=== PATIENT | male | born 1990 | race African-American/Black ===

== ENCOUNTER 2020-03-25 08:30 | Emergency (ER) | payer OTHER, SELFPAY ==
[2020-03-25 08:35] VITALS: BP 168/98; PULSE 86; RESP 18; TEMP 36.2; O2SAT 100
--- NOTE | 2020-03-25 09:09 | ED.EYEPROB ---
HPI - Eye Problem General Chief complaint: Eye Problems Stated complaint: Eye Problem Time Seen by Provider: 03/25/20 08:50 Source: patient Mode of arrival: ambulatory Limitations: no limitations History of Present Illness HPI Narrative: Patient is a 29-year-old male who presents to the emergency department with complaint of foreign body in his left eye. Patient states he had part of contact lens stuck underneath his left eyelid. Nurse irrigated patient's eye on arrival to the ED and he states foreign body is now gone and he feels asymptomatic. Patient denies any other eye symptoms whatsoever. Patient reports that 1 week ago today he was found to have a temperature of 101 on screening going into work and was sent home. Patient states when he got home his temperature was normal and he has not had any fever whatsoever over the past week. Patient denies any symptoms such as cough, shortness of breath, headache, myalgias, nausea, vomiting, or diarrhea. Patient states he is never had any illness symptoms and he questions the accuracy of the temperature check at work as he did not feel like he had a fever and he did not have an elevated temperature when he got home. Patient states he needs a note to go back to work. chief complaint: foreign body Onset (ago): hour(s) Location: left eye Eye Symptoms: foreign body sensation Place: home Mechanism: other (Contact lens) Associated symptoms: none Related Data Home Medications Medication Instructions Recorded Confirmed No Home Medications 03/25/20 03/25/20 Allergies Allergy/AdvReac Type Severity Reaction Status Date / Time No Known Allergies Allergy Verified 03/25/20 09:04 Review of Systems Review of Systems: All systems reviewed & are unremarkable except as noted in HPI and below Constitutional: Constitutional: Denies chills and Denies fever(s) Eyes: Eyes: Reports as per HPI ENT: Reports as per HPI Respiratory: Respiratory: Denies cough and Denies dyspnea Gastrointestinal: Gastrointestinal: Denies diarrhea, Denies nausea and Denies vomiting PMF Past Medical History Medical History (Updated 03/25/20 @ 09:16 by Marisol Royal MD) No significant past medical history Social History Social History (Updated 03/25/20 @ 09:12 by Marisol Royal MD) Smoking status: Never smoker Exam Const: General: cooperative, no acute distress and alert Nutritional Appearance: obese morbidly obese Orientation/consciousness: patient oriented x3 Limitations: no limitations Eyes: Conjunctivae: conjunctivae normal Pupils: Equal, round and reactive pupils present EOM: EOMs intact bilaterally Direct Ophthalmoscopy: no photophobia Resp: Effort & Inspection: normal respiratory effort Auscultation: clear to auscultation bilaterally Cardio: Rate: regular rate Rhythm: regular rhythm Skin: General skin exam: normal color Neuro: General: patient oriented x3 Cognition (Neuro): normal cognition Speech: normal speech Extrem: General: normal to inspection, full ROM and no clubbing, cyanosis or edema Psych: Mental Status: mental status grossly normal Affect: normal affect Attitude: cooperative Course Course Emergency Course: Patient foreign body alleviated by eye irrigation by nurse on arrival. Currently asymptomatic. Will discharge home. Patient without any illness symptoms. Vital Signs Vital signs: Vital Signs Temperature 97.1 F L 03/25/20 08:35 Pulse Rate 86 03/25/20 08:35 Respiratory Rate 18 03/25/20 08:35 Blood Pressure 168/98 H 03/25/20 08:35 Pulse Oximetry 100 03/25/20 08:35 Temperature 97.1 F L 03/25/20 08:35 Pulse Rate 86 03/25/20 08:35 Respiratory Rate 18 03/25/20 08:35 Blood Pressure 168/98 H 03/25/20 08:35 Pulse Oximetry 100 03/25/20 08:35 Critical Care Time Critical Care Time Critical Care Time: No Discharge Plan Discharge Clinical Impression: Foreign body of left eye Qualifiers: Encounter typ
[2020-03-25 09:30] VITALS: BP 141/89; PULSE 79; RESP 18; TEMP 36.4; O2SAT 99
== END 2020-03-25 09:35 | disposition home or self-care (01) ==
PROVIDERS: Emergency Provider Emergency Medicine
DX: T15.92XA Foreign body on external eye, part unspecified, left eye, initial encounter (principal); Y29.XXXA Contact with blunt object, undetermined intent, initial encounter
CPT/HCPCS: 99281; A9270

== ENCOUNTER 2023-10-06 18:12 | Emergency (ER) | payer BC, SELFPAY ==
[2023-10-06 18:14] VITALS: BP 155/95; PULSE 89; RESP 17; TEMP 36.7; O2SAT 97
[2023-10-06 22:02] LABS: Basophils Percent Auto 0.6 % (0.2-1.2); Eosinophils Absolute Auto 0.2 K/mm3 (0-0.3); Eosinophils Percent Auto 2.5 % (0-4.4); Hemoglobin 15.7 g/dL (14.0-18.0); Immature Granulocyte Absolute 0.01 K/mm3 (0.00-0.031); Immature Granulocyte Percent A 0.1 % (0-0.5); Lymphocytes Absolute Auto 3.06 K/mm3 (0.9-3.2); Lymphocytes Percent Auto 42.3 % (18.3-44.2); Mean Corpuscular HGB Conc 32.7 g/dl (32-36); Mean Corpuscular Hemoglobin 27.9 pg (26-34); Mean Corpuscular Volume 85.4 fl (80-100); Mean Platelet Volume 9.4 fl (7.4-10.4); Monocytes Absolute Auto 0.3 K/mm3 (0.1-0.6); Monocytes Percent Auto 4.6 % (2.6-8.5); Neutrophils Absolute Auto 3.6 K/mm3 (1.3-6.7); Neutrophils Percent Auto 49.9 % (45.5-73.1); Platelet Count Result 299 k/mm3 (150-375); Red Blood Count 5.62 M/mm3 (4.6-6.20); Red Cell Distribution Width 12.9 % (11.5-14.5); White Blood Count 7.2 K/mm3 (4.5-10.0)
--- NOTE | 2023-10-06 22:16 | ED.MALEGU ---
HPI - Male Genitourinary General Chief complaint: Urogenital-Male Stated complaint: Kidney stone Time Seen by Provider: 10/06/23 21:47 History of Present Illness HPI Narrative: 33-year-old male reports for evaluation to the emergency department for difficulty urinating since 5pm this evening. Patient reports a prior history of kidney stones in 2018 reviewed difficulty urinating until he was able to pass the stone. He states for the past couple of weeks, he has been having intermittent right flank pain. States he had some dysuria past few days with associated nausea which has since resolved. Patient states around 5:00 p.m. today, he fell he was unable to fully empty his bladder and began troubling from his urethra. This prompted him to come to the ED. once the patient was roomed, he is asked to provide a urine sample went to the bathroom. He states he felt this rash and noticed he had passed a small blood clot and what looks like a kidney stone. He states he feels much better and does not feel like he is retaining any more urine. He denies current flank pain, abdominal pain, nausea, vomiting, diarrhea. He denies penile discharge, testicular pain or concern for STDs. No fever. Related Data Allergies Allergy/AdvReac Type Severity Reaction Status Date / Time No Known Allergies Allergy Verified 10/06/23 18:18 Review of Systems Review of Systems: CONSTITUTIONAL: Denies fever, chills, or sweats. EYES: Denies visual changes, redness, or discharge. ENT: Denies rhinorrhea, congestion, sore throat, or otalgia. CARDIOVASCULAR: Denies chest pain, palpitations, or edema. RESPIRATORY: Denies cough or dyspnea. GASTROINTESTINAL: See HPI GENITOURINARY: see HPI SKIN: Denies rash or itching. MUSCULOSKELETAL: see HPI NEUROLOGIC: Denies headache, numbness, or weakness. PSYCHIATRIC: Denies anxiety or depression. PMFSH Past Medical History Medical History No significant past medical history Social History Social History Smoking status: Never smoker Exam Narrative: GENERAL: Well-appearing, well-nourished, and in no acute distress. patient resting comfortably in exam bed. He is pleasant and conversational. HEAD: Normocephalic, atraumatic. EYES: PERRLA and EOMI. ENT: Nares clear, no rhinorrhea or epistaxis. Mucous membranes moist. NECK: Supple. CHEST: Clear to auscultation. No respiratory distress. HEART: Regular rate and rhythm. No murmur heard. Normal peripheral pulses. ABDOMEN: Soft, nontender, nondistended, normal active bowel sounds. No CVA tenderness. EXTREMITIES: Normal range of motion. No edema. SKIN: Warm, dry, no rash. NEURO: No focal deficits. Alert and oriented x3 Course Vital Signs Vital signs: Vital Signs Temperature 98.0 F 10/06/23 18:14 Pulse Rate 89 10/06/23 18:14 Respiratory Rate 17 10/06/23 18:14 Blood Pressure 155/95 H 10/06/23 18:14 Pulse Oximetry 97 10/06/23 18:14 Oxygen Delivery Room Air 10/06/23 18:14 Temperature 98.0 F 10/06/23 18:14 Pulse Rate 89 10/06/23 18:14 Respiratory Rate 17 10/06/23 18:14 Blood Pressure 155/95 H 10/06/23 18:14 Pulse Oximetry 97 10/06/23 18:14 Oxygen Delivery Room Air 10/06/23 18:14 MDM - Male Genitourinary MDM Narrative Medical decision making narrative: 33-year-old male reports for evaluation for difficulty urinating since 5:00 p.m. this evening which spontaneously resolved after intensive a reported blood clot and what looks like a kidney stone a well urinating in the ED. See HPI for further history. Vitals significant for elevated blood pressure 155/95, otherwise unremarkable. Patient is well-appearing on exam. Abdomen is soft nontender. No CVA tenderness. No testicular pain. Labs without leukocytosis or anemia. Urinalysis with 2+ leuk esterase, 51-100 wbc's and 1+ bacteria. No hematu
[2023-10-06 22:21] LABS: Add Urine Microscopic? YES; Appearance Urine Turbid (Clear); Bacteria Urine 1+ /hpf; Bilirubin Urine Negative (Negative); Blood Urine Negative (Negative); Color Urine Dark Yellow (Yellow); Glucose Urine UA Negative (Negative); Ketones Urine Negative (Negative); Leukocyte Esterase Ur 2+ LEU/UL (Negative); Need Manual Microscopic Reviewed; Nitrate Urine Negative (Negative); Non Pathogenic Casts 0-2; Protein Urine Negative (Negative); RBC Urine 0-2 /hpf (0-2); Specific Grav Ur 1.029 (1.001-1.035); Squamous Epithelial Cell Urine Moderate /hpf (Few); WBC Urine 51-100 /hpf
[2023-10-06] MEDS: cefTRIAXone 1 GM VIAL IM (22:57)
[2023-10-06] MEDS: metroNIDAZOLE 500 MG TABLET PO (22:57)
[2023-10-06] MEDS: DOXYCYCLINE HYCLATE 50 MG CAPSULE PO (22:58)
[2023-10-06 23:40] LABS: Alanine Aminotransferase 35 U/L (6-50); Albumin Level 4.3 g/dL (3.5-5.1); Alkaline Phosphatase 92 U/L (38-126); Anion Gap 11 mmol/L (8-16); Aspartate Amino Transferase 30 U/L (17-59); Bilirubin,Total 0.5 mg/dL (0.2-1.3); Blood Urea Nitrogen 11 mg/dL (9-20); Calcium 9.2 mg/dL (8.4-10.2); Carbon Dioxide 24 mmol/L (22-30); Chloride 105 mmol/L (98-107); Estimated CRCL calculation 175 ml/min; Estimated Glomerular Filt Rate > 60; Glucose 97 mg/dL (65-110); Potassium 3.9 mmol/L (3.4-5.0); Sodium 140 mmol/L (137-145)
[2023-10-07 03:49] LABS: Trichomonas Vag PCR NOT DETECTED (NOT DETECTE)
[2023-10-07 04:11] LABS: Chlamydia trachomatis NOT DETECTED (NOT DETECTE); Neisseria gonorrhoeae PCR NOT DETECTED (NOT DETECTE)
== END 2023-10-07 00:25 | disposition home or self-care (01) ==
PROVIDERS: Student in an Organized Health Care Education/Training Program; Emergency Provider Physician Assistant
DX: R82.90 Unspecified abnormal findings in urine (principal); Z11.3 Encounter for screening for infections with a predominantly sexual mode of transmission
CPT/HCPCS: 36415; 80053; 81001; 85025; 87086; 87088; 87491; 87591; 87661; 96372; 99283; A9270; J0696